=== PATIENT | male | born 1990 | race Two or more races ===

== ENCOUNTER 2024-11-10 23:17 | Emergency (ER) | payer MEDICAID, OTHER ==
[~2024-11-10] VITALS: Ht 167.6 cm; Wt 66.0 kg
[2024-11-10 23:21] VITALS: TEMP 36.4; O2SAT 98
[2024-11-11 01:14] LABS: BASOPHILS % 0.8 % (0.0-2.0); EOSINOPHILS % 2.7 % (0.0-5.0); HEMATOCRIT. 42.3 % (42.0-52.0); HEMOGLOBIN. 14.3 g/dL (14.0-18.0); LYMPHOCYTES % 24.2 % (20.0-50.0); MEAN CORPUSCULAR HEMOGLOBIN 29.9 pg (28.0-32.0); MEAN CORPUSCULAR HGB CONC 33.7 g/dL (31.0-37.0); MEAN CORPUSCULAR VOLUME 88.8 fL (80.0-94.0); MEAN PLATELET VOLUME 9.5 fl (7.4-10.4); MONOCYTES % 7.4 % (2.0-8.0); NEUTROPHILS % 64.9 % (40.0-76.0); PLATELET 205 x1000/uL (130-400); RED BLOOD CELL COUNT 4.77 mill/uL (4.7-6.1); RED CELL DISTRIBUTION WIDTH 13.9 % (11.6-14.6); WHITE BLOOD COUNT 4.2 x1000/uL (4.5-11.0)
[2024-11-11 01:18] LABS: CHLORIDE 101 mEq/L (98-107); POTASSIUM 4.5 mEq/L (3.5-5.1); SODIUM 138 mEq/L (136-145)
[2024-11-11 01:19] LABS: CALCIUM 8.9 mg/dL (8.7-10.4); CARBON DIOXIDE 33 mEq/L (21-32)
[2024-11-11 01:24] LABS: GLUCOSE 101 mg/dL (70-105); UREA NITROGEN BLOOD 20 mg/dL (9-23)
[2024-11-11 01:25] LABS: ETHANOL BLOOD < 10 mg/dL (<10)
[2024-11-11 01:26] LABS: ACETAMINOPHEN < 2 ug/mL (10-30)
[2024-11-11 04:28] VITALS: BP 109/70; PULSE 69; RESP 14; O2SAT 96
== END 2024-11-11 04:34 ==
LOC: ER 23:17
DX: T40.411A Poisoning by fentanyl or fentanyl analogs, accidental (unintentional), initial encounter (principal); Y92.89 Other specified places as the place of occurrence of the external cause
CPT/HCPCS: 36415; 74176; 80048; 80307; 80320; 80329; 85025; 99284; G0480